=== PATIENT | female | born 1985 | race Caucasian/White ===

== ENCOUNTER 2017-08-15 12:31 | Emergency (ER) | payer BC ==
[~2017-08-15] VITALS: Ht 170.2 cm; Wt 77.3 kg
[2017-08-15 12:34] VITALS: BP 119/59; TEMP 98.3
[2017-08-15 15:11] VITALS: PULSE 94
== END 2017-08-15 15:12 | disposition home or self-care (01) ==
LOC: COL.ER 12:31
DX: G43.909 Migraine, unspecified, not intractable, without status migrainosus (principal)
CPT/HCPCS: J1200; J1885; J2550; J2765; J7030

== ENCOUNTER → 2020-11-25 | Outpatient (REF) | LOC: COL.CARD 09:45 | DX: Z01.810 Encounter for preprocedural cardiovascular examination (principal) ==